=== PATIENT | female | born 1995 | race Caucasian/White ===

== ENCOUNTER 2017-04-13 04:51 | Inpatient (IN) | payer SELFPAY ==
[~2017-04-13] VITALS: Ht 162.6 cm; Wt 49.9 kg
[2017-04-13 05:46] LABS: UDS - AMPHET NEGATIVE QUAL (NEGATIVE); UDS - BARB NEGATIVE QUAL (NEGATIVE); UDS - BENZO NEGATIVE QUAL (NEGATIVE); UDS - COCAINE NEGATIVE QUAL (NEGATIVE); UDS - METH NEGATIVE QUAL (NEGATIVE); UDS - OPIATE NEGATIVE QUAL (NEGATIVE); UDS - PCP NEGATIVE QUAL (NEGATIVE); UDS - THC POSITIVE QUAL (NEGATIVE)
[2017-04-13 05:54] LABS: APPEARANCE CLEAR (CLEAR); BILIRUBIN NEGATIVE (NEGATIVE); COLOR YELLOW (YELLOW); GLUCOSE NEGATIVE (NEGATIVE); KETONE MODERATE mg/dL (NEGATIVE); LEUKOCYTE ESTERASE 1+ (NEGATIVE); NITRITE NEGATIVE (NEGATIVE); PROTEIN NEGATIVE (NEGATIVE); UROBILINOGEN NORMAL (NORMAL)
[2017-04-13 05:56] LABS: BACTERIA MODERATE /hpf (NONE SEEN); EPITHELIAL CELLS 0-5 /hpf (0-5); MUCUS <1+ /lpf (NONE SEEN); RED CELLS - URINE 0-5 /hpf (0-5)
[2017-04-13 06:33] LABS: HEMATOCRIT 33.1 % (36.0-48.0); HEMOGLOBIN 10.8 g/dL (12-16); MCH 28.1 pg (26.0-34.0); MCHC 32.6 g/dL (31.0-37.0); MEAN PLATELET VOLUME 11.3 fL (7.4-10.4); RBC 3.85 10x6/uL (4.00-5.40); RDW 13.5 % (11.5-14.5); WBC 15.4 10x3/uL (4.8-10.8)
[2017-04-13 11:42] LABS: HIV 1 & 2- RAPID SCREEN NEGATIVE (NEGATIVE)
--- NOTE | 2017-04-13 19:58 | NUR ---
RCVD PT FROM Scottie GRACIA RN. PT LYING ON LT SIDE WITH HOB 45 DEGREES. PT DENIES PAIN AT THIS TIME. HR-RRR, PPP, BOWEL SOUNDS ACTIVE X4. PIV TO RT HAND SL. NO ERYTHEMA OR EDEMA NOTED AT SITE. PT REPORTS LIGHT LOCHIA RUBRA UPON VOIDING AND NO CLOTS. FUNDUS FIRM, U/2, ML. FAMILY MEMBER IN ROOM FOR SUPPORT. PT DENIES PAIN OR NEEDS AT THIS TIME. WILL CONT. TO MONITOR. BED LOW, WHEELS LOCKED, CL IN REACH, SIDE RAILS UP X2.
--- NOTE | 2017-04-13 20:02 | NUR ---
PT LYING ON BACK IN BED WITH C/O MILD ACID REFLUX. ADV PT TO DRINK MORE WATER INSTEAD OF SODA AND RAISE HOB TO SEE IF IT HELPS. PT VERBALIZED UNDERSTANDING AND DENIES FURTHER NEEDS. WILL CONT POC.
[2017-04-13 20:43] VITALS: BP 109/60; Ht 162.6 cm; Wt 49.9 kg
--- NOTE | 2017-04-13 21:16 | NUR ---
PT REPORTS ACID REFLUX "FEELING BETTER" AND DENIES NEEDS OR PAIN AT THIS TIME. WILL CONT. POC.
--- NOTE | 2017-04-13 22:04 | NUR ---
ROUNDS MADE. PT LYING ON BACK, HOB 45 DEGREES. PT REPORTS SHOWERING AND "FEELING MUCH BETTER." PT ASKS IF SHE CAN WEAR HER OWN CLOTHES. ADV PT THAT SHE COULD. PT DENIES CLOTS AND SCANT BLEEDING WHILE SHOWERING. PT HAS VOIDED 3 TIMES AND DENIES ANY DIFFICULTY. PT DENIES PAIN. ICE WATER PROVIDED. WILL CONT. TO MONITOR.
[2017-04-14 00:28] VITALS: BP 130/93
--- NOTE | 2017-04-14 00:28 | NUR ---
ROUNDS MADE. PT LYING ON RT SIDE, EYES CLOSED, RESP EVEN & UNLABORED. FRIEND SLEEPING ON BEDSIDE COUCH. PT LEFT UNDISTURBED AT THIS TIME.
--- NOTE | 2017-04-14 02:46 | NUR ---
ROUNDS MADE. PT LYING ON BACK, HOB 20 DEGREES. PT RESTING, EYES CLOSED, RESP EVEN & UNLABORED. FRIEND REMAINS ASLEEP ON BEDSIDE COUCH. PT LEFT UNDISTURBED AT THIS TIME.
--- NOTE | 2017-04-14 04:38 | NUR ---
ROUNDS MADE. PT LYING ON RT SIDE WITH EYES CLOSED, RESP EVEN & UNLABORED. FRIEND SLEEPING ON BEDSIDE COUCH. PT LEFT UNDISTURBED.
--- NOTE | 2017-04-14 06:17 | NUR ---
ROUNDS MADE. PT LYING ON LT SIDE RESTING WITH EYES CLOSED. PT AROUSES WITH LIGHT VERBAL STIMULI. PT DENIES NEEDS OR PAIN AT THIS TIME. ADV PT TO TALK TO RELIGION BEFORE D/C TODAY. PT VERBALIZED UNDERSTANDING AND IS AGREEABLE.
[2017-04-14 07:25] LABS: BASOPHILS 0 % (0-2); EOSINOPHILS 0 % (0-7); HEMATOCRIT 31.7 % (36.0-48.0); HEMOGLOBIN 10.2 g/dL (12-16); IMMATURE GRANULOCYTES 0.6 % (0-5); LYMPHOCYTES 10.4 % (15-50); MCH 27.6 pg (26.0-34.0); MCHC 32.2 g/dL (31.0-37.0); MCV 85.9 fL (80.0-100.0); MEAN PLATELET VOLUME 11.2 fL (7.4-10.4); MONOCYTES 4.7 % (2-11); NEUTROPHILS 84.3 % (40-80); PLATELET COUNT 256 10x3/uL (130-400); RBC 3.69 10x6/uL (4.00-5.40); RDW 13.5 % (11.5-14.5); WBC 22.6 10x3/uL (4.8-10.8)
[2017-04-14 07:26] LABS: RAPID PLASMA REAGIN Non Reactive (Non Reactive)
[2017-04-14 07:45] VITALS: BP 109/68
--- NOTE | 2017-04-14 07:45 | NUR ---
ASSESSMENT DONE. VERBAL RESPONSES APPRO TO QUESTIONS. UP AND ABOUT IN ROOM. DENIES NEEDS. DENIES WANTING PAIN MEDICATION.
--- NOTE | 2017-04-14 08:10 | NUR ---
TRANSFERED PHONE FROM [facility] TO PT ROOM- PERSON STATES CONCERNING "OUR KIDS"
[2017-04-14 08:18] LABS: HEPATITIS C ANTIBODY <0.1 (0.0-0.9)
--- NOTE | 2017-04-14 09:32 | NUR ---
DR CUELLAR HERE TO SEE PT.
--- NOTE | 2017-04-14 09:36 | NUR ---
DR SALAZAR ORDERS REPEAT WBC BEFORE DISCHARGE.
--- NOTE | 2017-04-14 10:55 | NUR ---
ROOM CHECK. PT IN BED. TALKING ON PHONE. NO COMPLAINTS VOICED.
[2017-04-14 12:18] LABS: HEMATOCRIT 29.5 % (36.0-48.0); HEMOGLOBIN 9.6 g/dL (12-16); MCHC 32.5 g/dL (31.0-37.0); MEAN PLATELET VOLUME 11.2 fL (7.4-10.4); PLATELET COUNT 254 10x3/uL (130-400); RBC 3.43 10x6/uL (4.00-5.40); RDW 13.6 % (11.5-14.5); WBC 23.2 10x3/uL (4.8-10.8)
[2017-04-14 13:05] VITALS: BP 122/71
--- NOTE | 2017-04-14 13:09 | NUR ---
LAB RESULTS CALLED TO DR HERNANDEZ REQUESTED B DR Joselyn SALAZAR. WBC INCREASED FROM THIS AM LAB OF 22.6. WBC NOW AT 23.2. PT TO REMAIN IN HOSP TO OBSERVE FOR WORSENING S/S.
[2017-04-14 13:15] LABS: RUBELLA IGG 3.56 index (Immune >0.99)
[2017-04-14 13:59] LABS: LYMPHOCYTES 8 % (15-50); MONOCYTES 6 % (2-11); NEUTROPHILS 84 % (40-80); PLATELET ESTIMATE NORMAL
--- NOTE | 2017-04-14 15:00 | NUR ---
DENIES PAIN. STATES BLEEDING IS SCANT. NO COMPLAINTS VOICED.
[2017-04-14 17:05] LABS: BASOPHILS 0 % (0-2); EOSINOPHILS 0 % (0-7); HEMATOCRIT 29.6 % (36.0-48.0); HEMOGLOBIN 9.6 g/dL (12-16); IMMATURE GRANULOCYTES 0.9 % (0-5); LYMPHOCYTES 12.3 % (15-50); MCH 27.7 pg (26.0-34.0); MCHC 32.4 g/dL (31.0-37.0); MCV 85.5 fL (80.0-100.0); MEAN PLATELET VOLUME 11.2 fL (7.4-10.4); MONOCYTES 4.9 % (2-11); NEUTROPHILS 81.9 % (40-80); PLATELET COUNT 249 10x3/uL (130-400); RBC 3.46 10x6/uL (4.00-5.40); RDW 13.6 % (11.5-14.5); WBC 22.9 10x3/uL (4.8-10.8)
--- NOTE | 2017-04-14 17:20 | NUR ---
ROOM CHECK. PT STATES SHE DID NOT WANT HER DINNER TRAY BUT WOULD BE WILL TO EAT A SANDWICH. GIVEN. CONTINUES TO DENIY PAIN. STATE ONLY VERY MILD OCCASIONAL CRAMPING. MEDS OFFERED. PT REFUSED.
[2017-04-14 19:08] VITALS: BP 112/59
--- NOTE | 2017-04-14 19:08 | NUR ---
PT RECEIVED LYING IN BED AAOX3 WATCHING TV AT THIS TIME. VSS. PT RATES PAIN 0/10 AT THIS TIME. S/L NOTED TO RIGHT HAND. DRESSING CDI. HEART RRR. LUNG SOUNDS CLEAR BILATERALLY. BOWEL SOUNDS ACTIVE X4 QUADRENTS. ABDOMEN SOFT, NON-TENDER. FUNDUS FIRM AND MIDLINE. U/2. PT STATES LOCHIA HAS BEEN LIGHT TO MODERATE THROUGHOUT THE DAY. PEDAL PULSES EQUAL BILATERALLY. PT DENIES NEEDS AT THIS TIME. BED LOW. PHONE AND CALL LIGHT IN REACH. SRX2.
--- NOTE | 2017-04-14 20:57 | NUR ---
PT LYING IN BED WATCHING TV AT THIS TIME. DENIES NEEDS AT THIS TIME. BED LOW. PHONE AND CALL LIGHT IN REACH. SRX2.
--- NOTE | 2017-04-14 22:34 | NUR ---
PT SITTING UP IN BED WATCHING TV AT THIS TIME. REQUESTS MEDICATION FOR PAIN PT RATES /. ADMINISTERED NORCO PO PER ORDERS AT THIS TIME. PT REQUESTS ICE WATER. DENIES OTHER NEEDS. BED LOW. PHONE AND CALL LIGHT IN REACH. SRX2.
--- NOTE | 2017-04-15 00:58 | NUR ---
PT LYING IN BED WATCHING TV AT THIS TIME. DENIES NEEDS. BED LOW. PHONE AND CALL LIGHT IN REACH. SRX2.
--- NOTE | 2017-04-15 02:57 | NUR ---
PT RESTING QUIETLY AT THIS TIME WITH EYES CLOSED. AROUSED EASILY. DENIES NEEDS AT THIS TIME. BED LOW. PHONE AND CALL LIGHT IN REACH. SRX2.
--- NOTE | 2017-04-15 04:42 | NUR ---
PT RESTING QUIETLY AT THIS TIME WITH EYES CLOSED. RESPIRATIONS EVEN, NON-LABORED. NO ACUTE DISTRESS NOTED AT THIS TIME. BED LOW. PHONE AND CALL LIGHT IN REACH. SRX2.
[2017-04-15 06:12] LABS: BASOPHILS 0.1 % (0-2); EOSINOPHILS 0.1 % (0-7); HEMATOCRIT 30.9 % (36.0-48.0); HEMOGLOBIN 9.9 g/dL (12-16); IMMATURE GRANULOCYTES 0.7 % (0-5); LYMPHOCYTES 16.8 % (15-50); MCV 87.3 fL (80.0-100.0); MEAN PLATELET VOLUME 12.2 fL (7.4-10.4); MONOCYTES 6.7 % (2-11); NEUTROPHILS 75.6 % (40-80); RBC 3.54 10x6/uL (4.00-5.40); RDW 13.7 % (11.5-14.5); WBC 18.7 10x3/uL (4.8-10.8)
[2017-04-15 06:13] LABS: PLATELET COUNT 174 10x3/uL (130-400)
[2017-04-15 07:55] VITALS: BP 119/49
--- NOTE | 2017-04-15 07:55 | NUR ---
DR SALAZAR ON UNIT FOR ROUNDS, GIVES ORDER FOR D/C TO HOME. THIS RN TO ROOM FOR SHIFT ASSESSMENT. PT SITTING UP IN BED, AAOx3, DENIES ANY PAIN. SHIFT ASSESSMENT COMPLETED, VSS, SEE FLOWSHEET FOR DOC. PT DENIES ANY BLEEDING CONCERNS AND STATES THAT IT HAS BEEN "PRETTY LIGHT". PT INSTRUCTED ON HEAVY LOCHIA AND WHAT TO REPORT. PT VERBALIZES UNDERSTANDING. [facility] INSTRUCTIONS REINFORCED WITH PT. PT DENIES ANY NEEDS, STATES SHE IS READY FOR D/C. WILL PROCEED WITH D/C ORDERED.
[2017-04-15 08:20] LABS: HGB SOLUBILITY (SICKLE SCREEN) Negative (Negative)
--- NOTE | 2017-04-15 08:50 | NUR ---
THIS RN TO ROOM FOR D/C INSTRUCTIONS. PT GIVEN INSTRUCTIONS WELL WRITTEN PRESCRIPTIONS FOR PAIN CONTROL POST D/C TO HOME. PT VERBALIZES UNDERSTANDING AND DENIES ANY QUESTIONS. FOLLOW UP APPOINTMENT CARD AND PHONE NUMBERS FOR QUESTIONS GIVEN. PT SIGNS CHART COPIES OF INSTRUCTIONS. PT REFUSES W/C OFF UNIT, STATES SHE WANTS TO WALK.
--- NOTE | 2017-04-15 08:55 | NUR ---
PT OFF UNIT AMBULATORY WITH INSTRUCTIONS IN HAND, TO PRIVATE VEHICLE FOR FRIEND TO DRIVE HOME.
== END 2017-04-15 08:55 | disposition home or self-care (01) | DRG 774 ==
LOC: D.LDO 04:51 → D.LD 08:12
PROVIDERS: ADMIT Obstetrics & Gynecology
PROC: 10D07Z6 Extraction of Products of Conception, Vacuum, Via Natural or Artificial Opening (ICD-10-PCS; principal; 2017-04-13)
DX: O60.14X0 Preterm labor third trimester with preterm delivery third trimester, not applicable or unspecified (principal); O45.93 Premature separation of placenta, unspecified, third trimester; O99.324 Drug use complicating childbirth; Z3A.34 34 weeks gestation of pregnancy; Z37.0 Single live birth; O71.89 Other specified obstetric trauma; O76 Abnormality in fetal heart rate and rhythm complicating labor and delivery; F12.90 Cannabis use, unspecified, uncomplicated